=== PATIENT | male | born 1980 | race Hispanic/Latino ===

== ENCOUNTER 2019-02-14 20:29 | Inpatient (IN) | payer OTHER ==
[~2019-02-14] VITALS: Ht 167.6 cm; Wt 96.7 kg
[2019-02-14] MEDS ORDERED: ONDANSETRON HCL 4 MG/2 ML VIAL ONE (21:20)
[2019-02-14] MEDS ORDERED: MORPHINE SULFATE 4 MG/1ML SYG ONE ×2 (21:21→21:58)
[2019-02-14 21:26] LABS: BASOPHILS % (AUTO) 0.6 % (0.0-5.0); EOSINOPHILS % (AUTO) 0.4 % (0.0-8.0); HEMATOCRIT 49.4 % (42-54); MEAN CORPUSCULAR HEMOGLOBIN 31.6 pg (27.0-33.0); MEAN CORPUSCULAR HGB CONC 33.8 g/dL (32.0-36.0); MEAN CORPUSCULAR VOLUME 93.5 fL (79-99); MONOCYTES % (AUTO) 15.4 % (3.0-13.0); NEUTROPHILS % (AUTO) 72.6 % (40.0-77.0); PLATELET COUNT (AUTO) 155 K/uL (130-400); RED BLOOD CELL COUNT(AUTO) 5.28 MIL/uL (4.50-6.20); RED CELL DISTRIBUTION WIDTH 16.3 % (11.0-15.5); WHITE BLOOD COUNT (AUTO) 10.5 K/uL (4.8-10.8)
[2019-02-14 21:42] LABS: CREATININE 0.8 mg/dL (0.5-1.5); POTASSIUM 3.5 mmol/L (3.5-5.1)
[2019-02-14 21:46] LABS: ALBUMIN 4.2 g/dL (3.5-5.0); BILIRUBIN,TOTAL 0.7 mg/dL (0.2-1.0); TOTAL PROTEIN, SERUM 8.1 g/dL (6.0-8.3)
[2019-02-14 21:51] LABS: APPEARANCE,URINE Clear (CLEAR); BILIRUBIN,URINE Negative (NEGATIVE); COLOR,URINE Yellow (YELLOW); GLUCOSE, URINE (UA) Negative (NEGATIVE); KETONES,URINE Trace mg/dL (NEGATIVE); LEUKOCYTE ESTERASE ,URINE Negative (NEGATIVE); NITRATE,URINE Negative (NEGATIVE); OCCULT BLOOD,URINE Negative (NEGATIVE); PH,URINE 6.5 (5.0-8.0); PROTEIN,URINE Negative (NEGATIVE)
[2019-02-14 21:58] LABS: AMPHET/METH SCREEN,URINE NEGATIVE (NEGATIVE); BARBITURATE SCREEN, URINE NEGATIVE (NEGATIVE); BENZODIAZEPINES SCREEN,URINE POSITIVE (NEGATIVE); CANNABINOID SCREEN,URINE NEGATIVE (NEGATIVE); COCAINE SCREEN,URINE NEGATIVE (NEGATIVE); OPIATE SCREEN,URINE NEGATIVE (NEGATIVE); PHENCYCLIDINE SCREEN,URINE NEGATIVE (NEGATIVE)
[2019-02-14] MEDS ORDERED: HYDROMORPHONE 1 MG/1 ML AMP ONE (22:43)
[2019-02-14] MEDS ORDERED: MORPHINE SULFATE 2 MG/ML 1ML SYG IV PRN (23:45)
[2019-02-14] MEDS: LACTATED RINGERS 1000ML 1,000 ML IV SCH (23:45)
[2019-02-14] MEDS ORDERED: ONDANSETRON HCL 4 MG/2 ML VIAL IV PRN (23:45)
[2019-02-14] MEDS ORDERED: HYDRALAZINE HCL 20 MG/ML VIAL IV PRN (23:45)
[2019-02-14] MEDS ORDERED: ACETAMINOPHEN 650 MG SUPPOSITORY RC PRN (23:45)
[2019-02-15] MEDS ORDERED: LACTATED RINGERS 1000ML 1,000 ML IV ONE ×2 (00:41→01:46)
[2019-02-15 01:53] VITALS: BP 141/93
[2019-02-15] MEDS ORDERED: MORPHINE SULFATE 2 MG/ML 1ML SYG ONE (01:58)
[2019-02-15] MEDS ORDERED: ALPR0.255 PO (03:00)
[2019-02-15 03:38] VITALS: BP 133/89
[2019-02-15] MEDS: MORPHINE SULFATE 4 MG/1ML SYG IV PRN ×2 (05:26→09:47)
[2019-02-15 06:09] LABS: HEMATOCRIT 43.9 % (42-54); MEAN CORPUSCULAR HEMOGLOBIN 31.9 pg (27.0-33.0); MEAN CORPUSCULAR HGB CONC 33.8 g/dL (32.0-36.0); MEAN CORPUSCULAR VOLUME 94.3 fL (79-99); NUCLEATED RED BLOOD CELLS 0.1 % (0.0-0.19); PLATELET COUNT (AUTO) 154 K/uL (130-400); RED BLOOD CELL COUNT(AUTO) 4.65 MIL/uL (4.50-6.20); RED CELL DISTRIBUTION WIDTH 15.6 % (11.0-15.5)
[2019-02-15 06:31] LABS: BAND NEUTROPHILS % (MANUAL) 10 % (0-2); BASOPHILS % (MANUAL) 1 % (0-2); EOSINOPHILS % (MANUAL) 2 % (1-6); LYMPHOCYTES % (MANUAL) 12 % (22-44); MAN.DIFF COMMENT-IMPRESSION MANUAL DIFFERENTIAL; MONOCYTES % (MANUAL) 19 % (2-9); PLATELET MORPHOLOGY COMMENT ADEQUATE; REACTIVE LYMPHOCYTES 4 % (0-0); SEGMENTED NEUTROPHILS % 52 % (40-70)
[2019-02-15 06:34] LABS: ALBUMIN 3.4 g/dL (3.5-5.0); BILIRUBIN,TOTAL 0.9 mg/dL (0.2-1.0); CREATININE 0.8 mg/dL (0.5-1.5); POTASSIUM 3.8 mmol/L (3.5-5.1); TOTAL PROTEIN, SERUM 6.9 g/dL (6.0-8.3)
[2019-02-15 08:00] VITALS: BP 144/88
[2019-02-15] MEDS: LACTATED RINGERS 1000ML 1,000 ML IV SCH ×3 (09:49→19:16)
[2019-02-15] MEDS: FAMOTIDINE/PF 20 MG/2 ML VIAL IV SCH ×2 (09:50→20:36)
[2019-02-15] MEDS: ENOXAPARIN SODIUM 30 MG/0.3 ML SQ SCH (09:51)
[2019-02-15 12:00] VITALS: BP 144/94
[2019-02-15] MEDS ORDERED: MORPHINE SULFATE 2 MG/ML 1ML SYG IV PRN (12:15)
[2019-02-15] MEDS: HYDROCODONE/ACETAMINOPHEN 5/325 MG TAB PO PRN ×2 (13:08→18:47)
--- NOTE | 2019-02-15 13:12 | NUR ---
Notified Jacob OLIVOP of increased pain and pt. requesting additional pain med, not happy with change in dose. Had just given him a [place], Jacob instructed to see how it works and call her back if not.
[2019-02-15] MEDS: LORAZEPAM 0.5 MG TABLET PO PRN ×2 (14:13→20:36)
[2019-02-15] MEDS: MORPHINE SULFATE 2 MG/ML 1ML SYG IV PRN ×2 (14:14→20:37)
[2019-02-15 16:00] VITALS: BP 150/95
[2019-02-15] MEDS ORDERED: METOPROLOL TARTRATE 1 MG/ML 5ML VIAL IV PRN (17:45)
[2019-02-15] MEDS ORDERED: METOPROLOL TARTRATE 1 MG/ML 5ML VIAL IV STA (17:45)
[2019-02-15] MEDS ORDERED: METOPROLOL TARTRATE 1 MG/ML 5ML VIAL IV ONE (17:52)
--- NOTE | 2019-02-15 18:44 | NUR ---
BP recheck 130/71 HR 114, now with temp 102.8. Notified SANDRA Quinn, orders received.
[2019-02-15] MEDS ORDERED: ACETAMINOPHEN EXTRA STRENGTH 500 MG TABLET PO PRN (19:00)
[2019-02-15] MEDS ORDERED: ZOSYN 3.375GM+NS 50ML 50 ML IV SCH (19:00)
[2019-02-15] MEDS ORDERED: LACTATED RINGERS 1000ML IV STA (19:14)
[2019-02-15 19:17] VITALS: BP 130/71
[2019-02-15 19:46] LABS: HEMATOCRIT 43.3 % (42-54); MEAN CORPUSCULAR HEMOGLOBIN 31.6 pg (27.0-33.0); MEAN CORPUSCULAR HGB CONC 33.8 g/dL (32.0-36.0); MEAN CORPUSCULAR VOLUME 93.4 fL (79-99); PLATELET COUNT (AUTO) 144 K/uL (130-400); RED BLOOD CELL COUNT(AUTO) 4.64 MIL/uL (4.50-6.20); RED CELL DISTRIBUTION WIDTH 15.8 % (11.0-15.5); WHITE BLOOD COUNT (AUTO) 9.4 K/uL (4.8-10.8)
[2019-02-15] MEDS: METOPROLOL TARTRATE 25 MG TAB PO SCH (20:38)
--- NOTE | 2019-02-15 21:04 | NUR ---
cm note spoke to pt and son simone, pt reside athome with sisters pilo and ash, pt has cane and walker, does not use, but sisters assist with bath and adls as needed. no other services. digeo simpson is back to home no dc needs Addendum: 02/15/19 at 210 by ADIS LEÓN CM Amended: Links added. Addendum: 02/15/19 at 2107 by ADIS LEÓN CM disregard above entry. entered in error.
--- NOTE | 2019-02-15 21:12 | NUR ---
- note iindep w amb/adls, lives w brothjune, pt visiting from [place], but plans to stay with brother in [facility]. Pt was at both [facility] prior to this admit. Out only 2-3 days, pt states mi plan is back to home. [facility] info given. pt Also requested to speak to [facility] for alcohol rehab places wants to go there at mi.referral sent to Renetat Marie. Addendum: 02/15/19 at 2114 by ADIS LEÓN CM Amended: Links added.
[2019-02-15 22:31] LABS: APPEARANCE,URINE Clear (CLEAR); BILIRUBIN,URINE Negative (NEGATIVE); COLOR,URINE Yellow (YELLOW); GLUCOSE, URINE (UA) Negative (NEGATIVE); KETONES,URINE Negative (NEGATIVE); LEUKOCYTE ESTERASE ,URINE Negative (NEGATIVE); NITRATE,URINE Negative (NEGATIVE); OCCULT BLOOD,URINE Negative (NEGATIVE); PH,URINE >=9.0 (5.0-8.0); PROTEIN,URINE Negative (NEGATIVE)
[2019-02-16 00:26] VITALS: BP 140/77
[2019-02-16] MEDS: MORPHINE SULFATE 2 MG/ML 1ML SYG IV PRN ×2 (02:49→09:36)
[2019-02-16 04:34] VITALS: BP 123/82
[2019-02-16] MEDS: HYDROCODONE/ACETAMINOPHEN 5/325 MG TAB PO PRN ×3 (06:22→19:55)
[2019-02-16 06:34] LABS: HEMATOCRIT 45.2 % (42-54); MEAN CORPUSCULAR HEMOGLOBIN 31.5 pg (27.0-33.0); MEAN CORPUSCULAR HGB CONC 33.4 g/dL (32.0-36.0); MEAN CORPUSCULAR VOLUME 94.1 fL (79-99); NUCLEATED RED BLOOD CELLS 0.1 % (0.0-0.19); PLATELET COUNT (AUTO) 136 K/uL (130-400); RED CELL DISTRIBUTION WIDTH 15.8 % (11.0-15.5)
[2019-02-16 06:50] LABS: ALBUMIN 3.4 g/dL (3.5-5.0); BILIRUBIN,TOTAL 1.4 mg/dL (0.2-1.0); CREATININE 0.9 mg/dL (0.5-1.5); POTASSIUM 3.9 mmol/L (3.5-5.1); TOTAL PROTEIN, SERUM 7.4 g/dL (6.0-8.3)
[2019-02-16 07:00] VITALS: BP 126/98
[2019-02-16] MEDS: FAMOTIDINE/PF 20 MG/2 ML VIAL IV SCH (09:37)
[2019-02-16] MEDS: METOPROLOL TARTRATE 25 MG TAB PO SCH ×2 (09:37→19:53)
[2019-02-16] MEDS: ENOXAPARIN SODIUM 30 MG/0.3 ML SQ SCH (09:37)
[2019-02-16 11:00] VITALS: BP 136/92
[2019-02-16] MEDS: LORAZEPAM 0.5 MG TABLET PO PRN (11:48)
[2019-02-16] MEDS ORDERED: TRAMADOL HCL 50 MG TABLET PO SCH (12:15)
[2019-02-16] MEDS: LEVOFLOXACIN 500 MG/D5W 100 ML 100 ML IV SCH (13:00)
[2019-02-16] MEDS ORDERED: PANTOPRAZOLE SODIUM 40 MG TABLET.DR PO SCH (15:00)
--- NOTE | 2019-02-16 15:14 | NUR ---
ALCO[facility]OL [facility] Sw met with pt and brother. Pt states he has already found a rehab in [facility] to go to. Pt has made contact and was supposed to be there yesterday at 9am. Pt informed them that he was admitted and was told to go there after az. Sw provided local alcohol rehab resources with contact #s. Pt reports he has been a very heavy drinker for the past 5 years and is ready to stop. Brother to drive pt to [facility] at az.
[2019-02-16] MEDS: PANTOPRAZOLE SODIUM 40 MG TABLET.DR PO SCH (15:28)
[2019-02-16] MEDS: TRAMADOL HCL 50 MG TABLET PO PRN ×3 (15:29→23:44)
[2019-02-16 16:00] VITALS: BP 135/93
[2019-02-16 21:13] VITALS: BP 154/97
[2019-02-16] MEDS: NICOTINE 21 MG/ 24 HR PATCH TD SCH (22:46)
[2019-02-17] VITALS (7 sets, daily range): BP systolic 127–160; BP diastolic 73–108
[2019-02-17] MEDS: HYDROCODONE/ACETAMINOPHEN 5/325 MG TAB PO PRN ×2 (03:40→18:44)
[2019-02-17] MEDS: LORAZEPAM 0.5 MG TABLET PO PRN ×3 (03:41→17:22)
[2019-02-17] MEDS: LACTATED RINGERS 1000ML 1,000 ML IV SCH ×2 (03:42→17:22)
[2019-02-17 04:44] LABS: HEMATOCRIT 43.1 % (42-54); MEAN CORPUSCULAR HEMOGLOBIN 31.6 pg (27.0-33.0); MEAN CORPUSCULAR HGB CONC 33.5 g/dL (32.0-36.0); MEAN CORPUSCULAR VOLUME 94.1 fL (79-99); PLATELET COUNT (AUTO) 159 K/uL (130-400); RED BLOOD CELL COUNT(AUTO) 4.58 MIL/uL (4.50-6.20); RED CELL DISTRIBUTION WIDTH 15.3 % (11.0-15.5); WHITE BLOOD COUNT (AUTO) 11.4 K/uL (4.8-10.8)
[2019-02-17 04:52] LABS: CREATININE 0.9 mg/dL (0.5-1.5)
[2019-02-17] MEDS: PANTOPRAZOLE SODIUM 40 MG TABLET.DR PO SCH ×2 (06:57→17:22)
[2019-02-17] MEDS: ENOXAPARIN SODIUM 30 MG/0.3 ML SQ SCH (07:39)
[2019-02-17] MEDS: NICOTINE 21 MG/ 24 HR PATCH TD SCH (07:40)
[2019-02-17] MEDS: TRAMADOL HCL 50 MG TABLET PO PRN (07:40)
[2019-02-17] MEDS ORDERED: MORPHINE SULFATE 4 MG/1ML SYG ONE (10:17)
[2019-02-17] MEDS: METOPROLOL TARTRATE 25 MG TAB PO SCH ×2 (10:29→21:21)
--- NOTE | 2019-02-17 10:35 | NUR ---
Patient c/o chest pain and pain to abdomen. VS 99.5 , bp 139/98, resp 22. O2 2LPM placed on patient. Patient given morphine for pain. States pain to chest subsiding. HALI Swift notified of chest pain, amylase, lipase, Cardiac Enzymes and EKG ordered. Patient states pain to abdomen continues to be a 7/10. Chest pain 0/10 but states he feels sudden sharp pain that disappears. Patient denies SOB. In no apparent distress.
[2019-02-17] MEDS ORDERED: NITROGLYCERIN 0.4 MG SL TAB SL PRN (10:45)
--- NOTE | 2019-02-17 11:03 | NUR ---
Patient given nitro SL for chest pain. Patient alert and awake, denies SOB. EKG done and ST. Patient continues to c/o of abdominal pain, CE WNL. Chest pain relieved. Lita Locke made aware.
[2019-02-17 11:19] LABS: AMYLASE 45 U/L (25-115); CREATINE KINASE, TOTAL 37 U/L (21-232); LIPASE 379 U/L (114-286); MYOGLOBIN 17 ng/mL (10-92); TROPONIN I < 0.04 ng/mL (0.00-0.06)
[2019-02-17] MEDS: LEVOFLOXACIN 500 MG/D5W 100 ML 100 ML IV SCH (12:20)
[2019-02-17] MEDS: MORPHINE SULFATE 4 MG/1ML SYG IV PRN ×2 (14:30→21:22)
[2019-02-17] MEDS ORDERED: MORPHINE SULFATE 4 MG/1ML SYG IV SCH (14:30)
[2019-02-17] MEDS: KETOROLAC TROMETHAMINE 15MG/ML IV PRN (15:36)
[2019-02-17] MEDS: MAGNESIUM HYDROXIDE 30 ML/UDCUP PO SCH (18:44)
[2019-02-18 00:15] VITALS: BP 139/78
[2019-02-18] MEDS: KETOROLAC TROMETHAMINE 15MG/ML IV PRN ×4 (01:37→19:30)
[2019-02-18] MEDS: LACTATED RINGERS 1000ML 1,000 ML IV SCH (01:37)
[2019-02-18 03:50] VITALS: BP 126/70
[2019-02-18 04:44] LABS: BASOPHILS % (AUTO) 0.2 % (0.0-5.0); HEMATOCRIT 42.8 % (42-54); LYMPHOCYTES % (AUTO) 7.3 % (21.0-51.0); MEAN CORPUSCULAR HEMOGLOBIN 31.3 pg (27.0-33.0); MEAN CORPUSCULAR VOLUME 92.1 fL (79-99); NEUTROPHILS % (AUTO) 74.5 % (40.0-77.0); PLATELET COUNT (AUTO) 189 K/uL (130-400); RED BLOOD CELL COUNT(AUTO) 4.65 MIL/uL (4.50-6.20); RED CELL DISTRIBUTION WIDTH 15.3 % (11.0-15.5); WHITE BLOOD COUNT (AUTO) 13.2 K/uL (4.8-10.8)
[2019-02-18 05:10] LABS: CREATININE 0.9 mg/dL (0.5-1.5); POTASSIUM 4.5 mmol/L (3.5-5.1)
[2019-02-18] MEDS: PANTOPRAZOLE SODIUM 40 MG TABLET.DR PO SCH ×2 (05:36→19:46)
[2019-02-18] MEDS: MORPHINE SULFATE 4 MG/1ML SYG IV PRN (05:37)
[2019-02-18 08:09] VITALS: BP 141/90
[2019-02-18] MEDS: MAGNESIUM HYDROXIDE 30 ML/UDCUP PO SCH (09:17)
[2019-02-18] MEDS: METOPROLOL TARTRATE 25 MG TAB PO SCH ×2 (09:18→20:51)
[2019-02-18] MEDS: ENOXAPARIN SODIUM 30 MG/0.3 ML SQ SCH (09:19)
[2019-02-18] MEDS: NICOTINE 21 MG/ 24 HR PATCH TD SCH (09:22)
[2019-02-18] MEDS ORDERED: TRAMADOL HCL 50 MG TABLET PO PRN (11:15)
[2019-02-18] MEDS ORDERED: SODIUM CHLORIDE 0.9% 1000ML 1,000 ML IV SCH (11:15)
[2019-02-18 12:00] VITALS: BP 133/84
[2019-02-18] MEDS: LEVOFLOXACIN 500 MG/D5W 100 ML 100 ML IV SCH (13:15)
[2019-02-18] MEDS: TRAMADOL HCL 50 MG TABLET PO PRN (13:16)
[2019-02-18] MEDS ORDERED: LACTULOSE 20 GM/30 ML UDCUP PO SCH (13:52)
[2019-02-18] MEDS: METRONIDAZOLE 500MG/100ML BAG 100 ML IV SCH ×2 (14:37→22:54)
[2019-02-18 16:00] VITALS: BP 147/94
[2019-02-18 20:00] VITALS: BP 155/96
[2019-02-18] MEDS: LACTULOSE 20 GM/30 ML UDCUP PO SCH ×2 (20:51→21:00)
[2019-02-19] VITALS: BP 136/93
[2019-02-19] MEDS: KETOROLAC TROMETHAMINE 15MG/ML IV PRN (02:35)
[2019-02-19 02:51] LABS: APPEARANCE,URINE Clear (CLEAR); BILIRUBIN,URINE Small (NEGATIVE); COLOR,URINE Orange (YELLOW); GLUCOSE, URINE (UA) Negative (NEGATIVE); KETONES,URINE 15 mg/dL (NEGATIVE); LEUKOCYTE ESTERASE ,URINE Small (NEGATIVE); NITRATE,URINE Positive (NEGATIVE); OCCULT BLOOD,URINE Negative (NEGATIVE); PH,URINE 6.5 (5.0-8.0); PROTEIN,URINE POS 2+ mg/dL (NEGATIVE)
[2019-02-19 03:23] LABS: BACTERIA,URINE Rare /HPF (None Seen); MUCUS,URINE Few LPF (None Seen); RBC,URINE 0-1 /HPF (0-1); SQUAMOUS EPITHELIAL CELL,UR 0-2 /HPF (0-2); WBC,URINE 0-1 /HPF (0-1)
[2019-02-19 04:00] VITALS: BP 135/87
[2019-02-19 05:10] LABS: CREATININE 0.9 mg/dL (0.5-1.5); MAGNESIUM 2.1 mg/dL (1.80-2.40); PHOSPHORUS 2.9 mg/dL (2.5-4.9); POTASSIUM 3.8 mmol/L (3.5-5.1)
[2019-02-19 05:12] LABS: HEMATOCRIT 39.2 % (42-54); MEAN CORPUSCULAR HEMOGLOBIN 31.1 pg (27.0-33.0); MEAN CORPUSCULAR HGB CONC 33.2 g/dL (32.0-36.0); MEAN CORPUSCULAR VOLUME 93.7 fL (79-99); PLATELET COUNT (AUTO) 257 K/uL (130-400); RED BLOOD CELL COUNT(AUTO) 4.18 MIL/uL (4.50-6.20); RED CELL DISTRIBUTION WIDTH 15.5 % (11.0-15.5); WHITE BLOOD COUNT (AUTO) 8.2 K/uL (4.8-10.8)
[2019-02-19 05:43] LABS: CRP QUANTITATIVE 117.4 mg/L (0.00-9.0)
[2019-02-19 06:07] LABS: INR 1.03 (0.85-1.15); PROTHROMBIN TIME 10.8 SEC (9.6-11.6)
[2019-02-19 06:08] LABS: ERYTHROCYTE SEDIMENTATION RATE 76 MM/HR (0-15)
[2019-02-19] MEDS: METRONIDAZOLE 500MG/100ML BAG 100 ML IV SCH (06:30)
[2019-02-19] MEDS: PANTOPRAZOLE SODIUM 40 MG TABLET.DR PO SCH (06:30)
[2019-02-19 08:00] VITALS: BP 117/60
[2019-02-19] MEDS: MAGNESIUM HYDROXIDE 30 ML/UDCUP PO SCH (09:05)
[2019-02-19] MEDS: LACTULOSE 20 GM/30 ML UDCUP PO SCH (09:05)
[2019-02-19] MEDS: METOPROLOL TARTRATE 25 MG TAB PO SCH (09:06)
[2019-02-19] MEDS: ENOXAPARIN SODIUM 30 MG/0.3 ML SQ SCH (09:06)
[2019-02-19] MEDS: NICOTINE 21 MG/ 24 HR PATCH TD SCH (09:06)
[2019-02-19] MEDS ORDERED: LEVO500T89 PO ×2 (10:51→10:56)
[2019-02-19] MEDS ORDERED: METO25 PO (10:51)
[2019-02-19] MEDS ORDERED: METR-172 PO ×2 (10:51→10:56)
[2019-02-19] MEDS ORDERED: FAMO-136 PO (10:51)
[2019-02-19 12:00] VITALS: BP 140/86
== END 2019-02-19 16:31 | disposition home or self-care (01) | DRG 439 ==
LOC: EDH 20:29 → EDHIP 20:30 → UNDOADMIN 23:40 → EDHIP 23:40 → 4CH 02-15 01:00
PROVIDERS: ADMIT Hospitalist; ATTEND Hospitalist
DX: K85.20 Alcohol induced acute pancreatitis without necrosis or infection (principal); E87.1 Hypo-osmolality and hyponatremia; E66.01 Morbid (severe) obesity due to excess calories; F10.10 Alcohol abuse, uncomplicated; F17.210 Nicotine dependence, cigarettes, uncomplicated; I10 Essential (primary) hypertension; R00.0 Tachycardia, unspecified; K59.00 Constipation, unspecified; K86.1 Other chronic pancreatitis; Z68.34 Body mass index [BMI] 34.0-34.9, adult; Z76.5 Malingerer [conscious simulation]; Z93.1 Gastrostomy status; Z93.0 Tracheostomy status; Z82.49 Family history of ischemic heart disease and other diseases of the circulatory system
CPT/HCPCS: 36415; 71045; 74018; 74176; 80048; 80053; 80061; 80305; 81001; 81003; 82150; 82550; 83605; 83690; 83735; 83874; 84100; 84484; 85025; 85027; 85610; 85651; 86140; 87040; 87088; 87804; 93005; G0378; J1170; J1650; J1885; J1956; J2270; J2405; J3490; J7030; J7120